=== PATIENT | male | born 1995 | race Hispanic/Latino ===

== ENCOUNTER 2018-10-16 15:51 | Emergency (ER) | payer SELFPAY ==
[2018-10-16] MEDS ORDERED: Ondansetron PF 4 MG/2 ML Vial ONE (15:53)
[2018-10-16 16:29] LABS: #Basophils 0.3 thou/uL (0.0-0.2); #Eosinphils 0.8 thou/uL (0.0-0.7); #Lymphocytes 5.9 thou/uL (1.20-3.40); #Monocytes 0.9 thou/uL (0.11-0.59); %Basophils 1.6 % (0.0-1.0); %Eosinophils 4.5 % (0.0-10.0); %Monocytes 5.3 % (0.0-4.0); %Neutrophils 53.6 % (31.0-61.0); Hemoglobin 17.2 g/dL (14.0-18.0); Mean Corpuscular HGB CONC 34.6 g/dL (32.0-36.0); Mean Corpuscular Hemoglobin 31.3 pg (25.0-35.0); Mean Corpuscular Volume 90.6 fL (78.0-98.0); Mean Platelet Volume 8.4 fL (7.4-10.4); Platelet Count 264 thou/uL (130-400); RBC Distribution Width 11.4 % (11.5-14.5); White Blood Cell (WBC) Count 16.8 thou/uL (4.8-10.8)
[2018-10-16] MEDS ORDERED: levETIRAcetam 500 MG/100 ML PREMIX BAG ONE (16:29)
--- NOTE | 2018-10-16 16:39 | RAD ---
RADIOGRAPH CHEST 1 VIEW: DATE: 10/16/2018 HISTORY: 19-year-old male found down. Acute chest trauma status post fall. FINDINGS: The visualized lung murphy are clear. The cardiomediastinal silhouette and hilar shadows are normal. The lateral costophrenic angles are sharp. The osseous structures appear normal. Supine positioning makes this study insensitive for the detection of pneumothorax. IMPRESSION: Negative.
[2018-10-16 16:51] LABS: ALT (SGPT) 26 U/L (8-55); AST (SGOT) 18 U/L (5-34); Albumin 4.6 g/dL (3.5-5.0); Alkaline Phosphatase 68 U/L (Less than 750); Anion Gap 21 mmol/L (10-20); BUN (Urea Nitrogen) 10 mg/dL (8.9-20.6); Bilirubin, Total 0.5 mg/dL (0.2-1.2); Calc. Creatinine Clearance 0 mL/min (70-130); Calcium 9.8 mg/dL (7.8-10.44); Carbon Dioxide 16 mmol/L (22-29); Chloride 105 mmol/L (98-107); Estimated GFR-MDRD Greater than 90; Globulin 2.4 g/dL (2.4-3.5); Glucose 164 mg/dL (70-105); Potassium 3.4 mmol/L (3.5-5.1); Sodium 139 mmol/L (136-145)
--- NOTE | 2018-10-16 17:13 | CT ---
CT head noncontrast HISTORY: Fall. Seizure. FINDINGS: There is no evidence of acute intracranial hemorrhage or infarct. The ventricles appear nor mal in size, shape and position. There is no mass effect or shift of midline structures. Visualized paranasal sinuses remain well aerated. IMPRESSION: No acute intracranial abnormalities are demonstrated.
--- NOTE | 2018-10-16 17:16 | CT ---
CT face noncontrast HISTORY: Fall. Facial injury. FINDINGS: The mandible, globes, and zygomatic arches are intact. Subtle irregularity involving the na peter bones may represent an old injury. No acute fracture is apparent. Mild mucosal thickening in the right maxillary sinus. No air-fluid levels. IMPRESSION: No acute traumatic injury is demonstrated.
--- NOTE | 2018-10-16 17:19 | CT ---
CT cervical spine noncontrast HISTORY: Seizure. Fall. Neck injury. FINDINGS: Vertebral body heights and alignment are maintained. Cervicothoracic junction is intact. No acute fracture or dislocation. IMPRESSION: No acute osseous abnormalities are demonstrated.
[2018-10-16 18:04] LABS: Base Excess-Venous -4.7 mmol/L (-2.0 to 3.0); Bicarbonate (HCO3v) 21.9 mmol/L (22.0-28.0); CO2 Tension (PvCO2) 44.9 mmHg (40.0-50.0); Calcium, Ionized 1.14 mmol/L (See Comments:); Chloride 107 mmol/L (98-107); Hemoglobin - Calc 14.5 g/dL (14.0-18.0); Potassium 3.6 mmol/L (3.5-5.1); Sodium 140 mmol/L (138-145); T. Carbon Dioxide 23.2 mmol/L (22.0-28.0); vO2 Saturation-calc 75.5 % (60.0-85.0)
[2018-10-16 18:48] LABS: Bilirubin Negative (Negative); Blood, Urine Negative (Negative); Clarity Clear (Clear); Glucose, Urine (Dipstick) Normal (Negative); Leukocyte Negative Leu/uL (Negative); Nitrite Negative (Negative); Protein, Urine (Dipstick) 20 mg/dL (Neg-Trace); Urobilinogen Normal mg/dL (Less than 2)
== END 2018-10-16 20:26 | disposition home or self-care (01) ==
LOC: ERS 15:51 → EDBD 15:51 → ERS 20:26
DX: R56.9 Unspecified convulsions (principal); S00.83XA Contusion of other part of head, initial encounter; F41.9 Anxiety disorder, unspecified; F17.210 Nicotine dependence, cigarettes, uncomplicated; W19.XXXA Unspecified fall, initial encounter
CPT/HCPCS: 70450; 70486; 71045; 72125; 80053; 81003; 82330; 82803; 84146; 85025; 93005; 96361; 96365; 96375; J1953; J2405

== ENCOUNTER 2018-11-05 03:01 | Emergency (ER) | payer SELFPAY ==
[2018-11-05] MEDS ORDERED: levETIRAcetam 500 MG TAB PO SCH (05:00)
[2018-11-05 06:34] LABS: ALT (SGPT) 23 U/L (8-55); AST (SGOT) 17 U/L (5-34); Albumin 4.8 g/dL (3.5-5.0); Alcohol Less than 10 mg/dL (Less than 10); Alkaline Phosphatase 61 U/L (40-150); Anion Gap 18 mmol/L (10-20); BUN (Urea Nitrogen) 11 mg/dL (8.9-20.6); Bilirubin, Total 0.7 mg/dL (0.2-1.2); Calc. Creatinine Clearance 0 mL/min (70-130); Calcium 9.6 mg/dL (7.8-10.44); Carbon Dioxide 20 mmol/L (22-29); Chloride 105 mmol/L (98-107); Estimated GFR-MDRD 80; Globulin 2.3 g/dL (2.4-3.5); Glucose 205 mg/dL (70-105); Potassium 4.5 mmol/L (3.5-5.1); Protein, Total 7.1 g/dL (6.0-8.3); Sodium 138 mmol/L (136-145)
[2018-11-05 06:51] LABS: Hemoglobin 16.4 g/dL (14.0-18.0); Mean Corpuscular HGB CONC 34.9 g/dL (32.0-36.0); Mean Corpuscular Hemoglobin 31.8 pg (27.0-31.0); Mean Corpuscular Volume 91.1 fL (78.0-98.0); Red Blood Cell (RBC) Count 5.17 mill/uL (4.70-6.10); White Blood Cell (WBC) Count 10.7 thou/uL (4.8-10.8)
[2018-11-05 06:52] LABS: #Eosinphils 0.4 thou/uL (0.0-0.7); #Lymphocytes 2.4 thou/uL (1.20-3.40); #Monocytes 0.5 thou/uL (0.11-0.59); #Neutrophils 7.4 thou/uL (1.40-6.50); %Basophils 0.4 % (0.0-1.0); %Eosinophils 3.8 % (0.0-10.0); %Monocytes 4.8 % (0.0-10.0); Mean Platelet Volume 7.9 fL (7.4-10.4); Platelet Count 202 thou/uL (130-400); RBC Distribution Width 11.2 % (11.5-14.5)
== END 2018-11-05 04:56 | disposition home or self-care (01) ==
LOC: ERS 03:01
DX: R56.9 Unspecified convulsions (principal); E11.65 Type 2 diabetes mellitus with hyperglycemia; Z71.6 Tobacco abuse counseling; F17.210 Nicotine dependence, cigarettes, uncomplicated
CPT/HCPCS: 80053; 80307; 85025; 99406

== ENCOUNTER 2018-12-20 19:26 | Emergency (ER) | payer SELFPAY ==
[2018-12-20] MEDS ORDERED: Proparacaine 0.5% Opth 15 ML BOT ONE (20:01)
[2018-12-20] MEDS ORDERED: Fluorescein Opthalmic Strip ONE (20:01)
[2018-12-20 20:14] LABS: Medtox Reader # READER 4; THC/Cannabinoid Screen Detected (NotDetected)
[2018-12-20 20:15] LABS: Amphetamine Not Detected (NotDetected); Barbiturates Screen Not Detected (NotDetected); Benzodiazepine Screen Not Detected (NotDetected); Cocaine Metabolite Screen Not Detected (NotDetected); Medtox Control Line Valid? VALID (VALID); Methadone Not Detected (NotDetected); Methamphetamine Not Detected (NotDetected); Opiate Screen Not Detected (NotDetected); Oxycodone Screen Not Detected (NotDetected); Phencyclidine (PCP) Not Detected (NotDetected); Tricyclic Screen Not Detected (NotDetected)
[2018-12-20 20:21] LABS: #Basophils 0.1 thou/uL (0.0-0.2); #Eosinphils 0.2 thou/uL (0.0-0.7); #Lymphocytes 1.8 thou/uL (1.20-3.40); #Monocytes 0.4 thou/uL (0.11-0.59); #Neutrophils 7.1 thou/uL (1.40-6.50); %Basophils 0.8 % (0.0-1.0); %Eosinophils 2.4 % (0.0-10.0); %Lymphocytes 18.9 % (21.0-51.0); %Monocytes 4.6 % (0.0-10.0); %Neutrophils 73.4 % (42.0-75.0); Hemoglobin 16.1 g/dL (14.0-18.0); Mean Corpuscular HGB CONC 34.4 g/dL (32.0-36.0); Mean Corpuscular Hemoglobin 31.2 pg (27.0-31.0); Mean Corpuscular Volume 90.5 fL (78.0-98.0); Mean Platelet Volume 7.6 fL (7.4-10.4); Platelet Count 197 thou/uL (130-400); RBC Distribution Width 11.1 % (11.5-14.5); Red Blood Cell (RBC) Count 5.15 mill/uL (4.70-6.10); White Blood Cell (WBC) Count 9.6 thou/uL (4.8-10.8)
[2018-12-20 20:36] LABS: Acetaminophen Less than 6.0 mcg/mL (10.0-30.0); Alcohol Less than 10 mg/dL (Less than 10); Salicylate Less than 8.0 mg/dL (15.0-30.0)
[2018-12-20 20:38] LABS: ALT (SGPT) 17 U/L (8-55); AST (SGOT) 15 U/L (5-34); Albumin 4.1 g/dL (3.5-5.0); Alkaline Phosphatase 60 U/L (40-110); Anion Gap 20 mmol/L (10-20); BUN (Urea Nitrogen) 9 mg/dL (8.9-20.6); Bilirubin, Total 0.5 mg/dL (0.2-1.2); CK (CPK) 39 U/L (30-200); Calc. Creatinine Clearance 0 mL/min (70-130); Calcium 8.5 mg/dL (7.8-10.44); Carbon Dioxide 14 mmol/L (22-29); Chloride 108 mmol/L (98-107); Estimated GFR-MDRD Greater than 90; Globulin 1.9 g/dL (2.4-3.5); Glucose 185 mg/dL (70-105); Sodium 138 mmol/L (136-145)
[2018-12-20] MEDS ORDERED: Ondansetron ODT 4 MG TAB ONE (21:19)
[2018-12-20] MEDS ORDERED: Acetaminophen 500 MG TAB ONE (21:19)
== END 2018-12-20 21:20 | disposition home or self-care (01) ==
LOC: ERS 19:26
DX: F12.90 Cannabis use, unspecified, uncomplicated (principal); R55 Syncope and collapse
CPT/HCPCS: 36415; 80053; 80306; 80307; 82550; 84146; 85025; 96360; Q0162

== ENCOUNTER 2019-02-10 16:48 | Observation (INO) | payer OTHER, SELFPAY ==
[2019-02-10] MEDS ORDERED: Ondansetron PF 4 MG/2 ML Vial ONE (16:56)
[2019-02-10] MEDS ORDERED: Lorazepam 2 MG/ML VIAL ONE (17:17)
[2019-02-10] MEDS ORDERED: levETIRAcetam In NaCl (Iso-Os) 1,500 MG in Premix Bag 1 BAG IVPB SCH (17:30)
[2019-02-10 17:32] LABS: #Basophils 0.1 thou/uL (0.0-0.2); #Eosinphils 0.4 thou/uL (0.0-0.7); #Lymphocytes 1.9 thou/uL (1.20-3.40); #Monocytes 0.6 thou/uL (0.11-0.59); #Neutrophils 10.3 thou/uL (1.40-6.50); %Basophils 0.6 % (0.0-1.0); %Eosinophils 3.2 % (0.0-10.0); %Lymphocytes 14.4 % (21.0-51.0); %Monocytes 4.4 % (0.0-10.0); %Neutrophils 77.5 % (42.0-75.0); Hemoglobin 15.6 g/dL (14.0-18.0); Mean Corpuscular HGB CONC 34.9 g/dL (32.0-36.0); Mean Corpuscular Volume 91.8 fL (78.0-98.0); Mean Platelet Volume 7.6 fL (7.4-10.4); Platelet Count 239 thou/uL (130-400); Red Blood Cell (RBC) Count 4.88 mill/uL (4.70-6.10); White Blood Cell (WBC) Count 13.3 thou/uL (4.8-10.8)
[2019-02-10 17:52] LABS: ALT (SGPT) 11 U/L (8-55); AST (SGOT) 14 U/L (5-34); Albumin 5.2 g/dL (3.5-5.0); Alkaline Phosphatase 78 U/L (40-110); Anion Gap 24 mmol/L (10-20); BUN (Urea Nitrogen) 14 mg/dL (8.9-20.6); Bilirubin, Total 0.6 mg/dL (0.2-1.2); CK (CPK) 74 U/L (30-200); Calc. Creatinine Clearance 0 mL/min (70-130); Calcium 9.9 mg/dL (7.8-10.44); Carbon Dioxide 16 mmol/L (22-29); Chloride 104 mmol/L (98-107); Estimated GFR-MDRD 85; Globulin 2.6 g/dL (2.4-3.5); Glucose 200 mg/dL (70-105); Lipase 13 U/L (8-78); Magnesium 2.8 mg/dL (1.6-2.6); Potassium 5.4 mmol/L (3.5-5.1); Protein, Total 7.8 g/dL (6.0-8.3); Sodium 139 mmol/L (136-145)
--- NOTE | 2019-02-10 17:52 | CT ---
Head CT without contrast 02/10/2019: COMPARISON: 10/16/2018 HISTORY: Seizures TECHNIQUE: Axial CT imaging at 5 mm intervals from vertex through skull base without contrast FINDINGS: The imaged paranasal sinuses and mastoid air cells are well aerated. There is no displaced calvarial fracture. No intracranial hemorrhage, midline shift, mass effect, or ventricular enlargement. IMPRESSION: Stable head CT-no intracranial hemorrhage.
--- NOTE | 2019-02-10 17:57 | CT ---
CT cervical spine: 02/10/2019 COMPARISON: 10/16/2018 HISTORY: Seizure TECHNIQUE: Axial CT imaging obtained at 2.5 mm intervals through the cervical spine with coronal and sagittal reformatted imaging FINDINGS: The imaged paranasal sinuses/mastoid air cells are well aerated. The C1 ring is intact. The occipital condyles, the dens, the C1-2 articulation, the craniocervical junction, and the cervicothoracic junction appear intact. Cervical vertebral body height and alignment appears normal. No prevertebral soft tissue swelling. No displaced fracture or evidence of dislocation. There is hazy increased density within the lung apices, which may be on the basis of motion artifact or infiltrate. Follow-up chest radiograph suggested. IMPRESSION: Hazy increased density in the lung apices. No acute fracture or dislocation within the ce rvical spine.
[2019-02-10 18:30] LABS: Bacteria/HPF None Seen HPF (None Seen); Bilirubin Negative (Negative); Blood, Urine Trace (Negative); Calcium Oxalate Crystals Rare HPF (None Seen); Clarity Clear (Clear); Glucose, Urine (Dipstick) Normal (Negative); Leukocyte Negative Leu/uL (Negative); Mucous/LPF Rare LPF (<2+); Nitrite Negative (Negative); Protein, Urine (Dipstick) 100 mg/dL (Neg-Trace); RBC/HPF 0-3 HPF (0-3); Squamous Epithelial None Seen HPF (0-3); Urobilinogen Normal mg/dL (Less than 2); WBC/HPF 0-3 HPF (0-3)
[2019-02-10 18:40] LABS: Amphetamine Not Detected (NotDetected); Barbiturates Screen Not Detected (NotDetected); Benzodiazepine Screen Not Detected (NotDetected); Cocaine Metabolite Screen Not Detected (NotDetected); Medtox Control Line Valid? VALID (VALID); Medtox Reader # READER 1; Methadone Not Detected (NotDetected); Methamphetamine Not Detected (NotDetected); Opiate Screen Not Detected (NotDetected); Oxycodone Screen Not Detected (NotDetected); Phencyclidine (PCP) Not Detected (NotDetected); THC/Cannabinoid Screen Detected (NotDetected); Tricyclic Screen Not Detected (NotDetected)
[2019-02-10 19:00] LABS: Lactate 3.31 mmol/L (0.50-2.20)
--- NOTE | 2019-02-10 19:09 | PDOC.FPRHP ---
- History of Present Illness Chief Complaint: seizure History of Present Illness: Mr. Pizano is a 23yo male with a known history of seizure disorder who presents to the ED from [facility] for seizure x2. He fell and hit his head after the first seizure and while still post-ictal had a second brief seizure. At the time of evaluation he was still confused about some aspects of his history and his present condition. He states he has a known seizure disorder , but does not recall the name of his physician or when he stopped taking the Keppra. He does recall that he was taking Keppra 1gram before, but has not been taking it for a while. He states that he is uninsured and this contributed to him discontinuing medication. He states his last seizure was approximately 3 weeks ago, however per the baby doctor in the room that number has changed several times since his arrival to the ED. He denies any bowel of bladder incontinence during tonight's episodes. He does complain of a stomach ache and 1 episode of emesis on arrival to the ED. ED Course: 1L NS, 1500mg Keppra IV, 2mg Ativan, 8mg Zofran - Allergies/Adverse Reactions Allergies Allergy/AdvReac Type Severity Reaction Status Date / Time No Known Drug Allergies Allergy Verified 02/10/19 21:28 - Home Medications Medication Instructions Recorded Confirmed Type levETIRAcetam [Keppra] 1,000 mg PO ASDIR 02/10/19 02/10/19 History - History PMHx: Seizure disorder PSHx: None FHx: Denies medical problems / does not recall Social: Admits to frequent marijuana use. Denies tobacco or alcohol use. - Review of Systems General: reports: fever/chills ENT: denies: nasal congestion, rhinorrhea Respiratory: denies: cough, congestion, shortness of breath Cardiovascular: denies: chest pain, palpitation, edema Gastrointestinal: reports: nausea, vomiting, abdominal pain. denies: diarrhea, constipation Genitourinary: denies: dysuria, polyuria, discharge Skin: denies: rashes, lesions, jaundice Musculoskeletal: denies: pain, tenderness, stiffness Neurological: reports: seizure. denies: numbness, weakness Psychological: denies: anxiety, depression - Vital signs BP: 108/72 HR: 56 RR: 14 Tmax: 98.3F Pox: 99% on RA Wt: 90kg - Physical Exam Constitutional: NAD, well developed -Constitutional: Awake, semi-alert, oriented to person, and time. However he is not aware of much of his history. HEENT: normocephalic and atraumatic, PERRLA, EOMI, conjunctiva clear, grossly normal vision, grossly normal hearing, MMM -HEENT: no lacerations Neck: supple, FROM Heart: RRR, normal S1/S2, no murmurs/rubs/gallops Lungs: CTAB, no respiratory distress, good air movement Abdomen: soft, non-tender, bowel sounds present Musculoskeletal: normal structure, normal tone Neurological: no focal deficit, CN II-XII intact, normal sensation Skin: no rash/lesions, good turgor Heme/Lymphatic: no unusual bruising or bleeding, no purpura, no petechia -Psychiatric: Recent memory not intact, confused and drowsy. FMR H&P: Results - Labs Result Diagrams: 02/11/19 04:26 02/11/19 04:26 Lab results: WBC 13.3 thou/uL (4.8-10.8) H 02/10/19 17:22 Hgb 15.6 g/dL (14.0-18.0) 02/10/19 17:22 Hct 44.8 % (42.0-52.0) 02/10/19 17:22 MCV 91.8 fL (78.0-98.0) 02/10/19 17:22 Plt Count 239 thou/uL (130-400) 02/10/19 17:22 Neutrophils % 77.5 % (42.0-75.0) H 02/10/19 17:22 Sodium 139 mmol/L (136-145) 02/10/19 17:22 Potassium 5.4 mmol/L (3.5-5.1) H 02/10/19 17:22 Chloride 104 mmol/L (98-107) 02/10/19 17:22 Carbon Dioxide 16 mmol/L (22-29) L 02/10/19 17:22 BUN 14 mg/dL (8.9-20.6) 02/10/19 17:22 Creatinine 1.07 mg/dL (0.7-1.3) 02/10/19 17:22 Glucose 200 mg/dL (70-105) H 02/10/19 17:22 Calcium 9.9 mg/dL (7.8-10.44) 02/10/19 17:22 Total Bilirubin 0.6 mg/dL (0.2-1.2) 02/10/19 17:22 AST 14 U/L (5-34) 02/10/19 17:22 ALT 11 U/L (8-55) 02/10/19 17:22 Alkaline Phosphatase 78 U/L (40-110) 02/10/19 17:22 Ammonia 108 umol/L (18-72) H 02/10/19 17:22 Creatine Kinase 74 U/L (30-200) 02/10/19 17:22 Serum Total Protein 7.8 g/dL (6.0-8.3) 02/10/19 17:22 Albumin 5.2 g/dL (3.5-5.0) H 02/10/19 17:22 Lipase 13 U/L (8-78) 02/10/19 17:22 Urine Ketones 10 mg/dL (Negative) A 02/10/19 18:11 Urine Blood Trace (Negative) A 02/10/19 18:11 Urine Nitrite Negative (Negative) 02/10/19 18:11 Ur Leukocyte Esterase Negative Tk/uL (Negative) 02/10/19 18:11 Urine RBC 0-3 HPF (0-3) 02/10/19 18:11 Urine WBC 0-3 HPF (0-3) 02/10/19 18:11 Ur Squamous Epith Cells None Seen HPF (0-3) 02/10/19 18:11 Urine Bacteria None Seen HPF (None Seen) 02/10/19 18:11 - EKG Interpretation EKG: NSR - Radiology Interpretation CT scan - head Status: report reviewed by me (IMPRESSION: Stable head CT-no intracranial hemorrhage. IMPRESSION: Hazy increased density in the lung apices. No acute fracture or dislocation within the cervical spine.) FMR H&P: A/P - Problem List (1) Seizure disorder Current Visit: Yes Status: Acute Code(s): G40.909 - EPILEPSY, UNSP, NOT INTRACTABLE, WITHOUT STATUS EPILEPTICUS (2) Increased anion gap metabolic acidosis Current Visit: Yes Status: Acute Code(s): E87.2 - ACIDOSIS (3) Lactic acid acidosis Current Visit: Yes Status: Acute Code(s): E87.2 - ACIDOSIS (4) Post concussive syndrome Current Visit: Yes Status: Suspected Code(s): F07.81 - POSTCONCUSSIONAL SYNDROME - Plan Seizure disorder -Was previously taking Keppra, unsure of when last dose was. Poor follow up outpatient. -S/p 2 witnessed seizures in alf. Generalized tonic-clonic. -Restarted on Keppra, 1500mg loading dose. Will start 500BID tomorrow and titrate accordingly. -Neuro consulted -Seizure protocol in place, ativan prn -Hepatitis panel, RPR, and HIV ordered. S/p fall from standing, possible concussion -Hit head hard per EMS/alf -CT C-spine and Head negative. -Confused, 1x emesis - may have post-concussive symptoms. -Will monitor closely Anion gap metabolic acidosis, suspect 2/2 lactic acidosis -Gap of 19 -Elevated lactic acid, decreased with IV fluids. -repeat BMP in the am. -VBG ordered Elevated blood glucose, without diagnosis of diabetes -A1c pending -SSI and hypoglycemia protocol, accuchecks ACHS Elevated ammonia -etiology unclear. -patient reports marijuana use, history of K2 use. -will repeat in AM labs. Disposition/LOS: Dispo: Stable, observation. Likely LOS < 48 hours. Code: Full VTE: SCDs FMR H&P: Upper Level - Pertinent history 23 year old male with PMH seizure disorder presents after having witnessed tonic -clonic seizure while in alf. Patient previously on Keppra but has been off of medication for approximately 6 months due to insurance reasons. Patient states that he does not follow with neurologist in [facility]. Patient recently arrested for possession of marijuana. He has history of marijuana use. Patient not very forthcoming in answering questions. He would say a few words before going back to sleep. He reports being tired. Per officers, patient hit head when he had seizure. Patient denies headache. No associated loss of bowel or bladder function. Patient reports no significant PMH other than seizure disorder. Patient reports that last seizure was 3 weeks ago. He had ER visit for seizure in October. - Pertinent findings General: Alert and oriented. Appeared tired. Would fall back to sleep after answering questions. HEENT: Normocephalic and atraumatic. No obvious lacerations or hematoma. MMM. Card: Regular rhythm, bradycardic during my exam. No appreciable murmur. Resp: CTA bilaterally Ext: No edema or cyanosis Abdomen: Soft, non-tender - Plan Date/Time: 02/10/191908 I, Flora Hawknis, have evaluated this patient and agree with findings/plan as outlined by process engineering intern resident. Pertinent changes/additions are listed here. Seizure Disorder - Has been off of medication for last 6 months - Loaded with keppra, will start 500 mg Keppra BID - Neurology consulted; patient could potentially follow up with outpatient - May be related to drug use, specifically marijuana/K2 use - UDS positive for THC, but otherwise negative - TSH WNL - Seizure precautions - Ativan PRN for seizures - Patient will need Keppra level check in a few days to see if therapeutic Anion gap metabolic acidosis - Bicarb 16 w/ anion gap 19 - VBG pending - Lactic acid 3, may be cause - Will fluid resuscitate and reassess - Ammonia elevated, unknown reason why. Liver enzymes normal. No evidence of hepatic encephalopathy. Drug screen negative. Has not been on valproic acid for seizure disorder. Will repeat in AM. Elevated ammonia - Uncertain etiology - No evidence of hepatic encephalopathy - UDS positive only for marijuana, hx of K2 use, which may be contributing factor - Will repeat in AM Leukocytosis - Mild, will trend - Likely leukemoid reaction Possible post-concussive syndrome - Patient with ongoing confusion, uncertain if post-ictal, drug related, or related to fall Hyperkalemia - Mild at 5.4 - Will trend Hyperglycemia - No hx of DM per patient - Will order HgA1c - Mild SSI - May be stress reaction from seizure - ACHS accuchecks Lactic acidosis - Will fluid resuscitate and trend Hx marijuana use and recent arrest - Will check HIV, RPR, Hepatitis panel DVT PPX: SCD's Code Status: Full Dispo: Obs on stroke unit. Continue antiseizure medication. Possible neuro consult in AM. Addendum - Attending - Attending Attestation Date/Time: 02/11/19 [id number] I personally evaluated the patient and discussed the management with the team. I agree with the History, Examination, Assessment and Plan documented above with any addition or exceptions noted below. Recurrent seizure due to presumed nonadherance to medications. Polysusbstance abuse - K2 and marijuana. Elevated ammonia without current confusion or asterixis - repeat in AM, not on depakote.
[2019-02-10] MEDS ORDERED: Lorazepam 2 MG/ML VIAL SLOW IVP PRN (20:05)
[2019-02-10] MEDS ORDERED: Ondansetron ODT 4 MG TAB PO PRN (20:09)
[2019-02-10] MEDS ORDERED: Acetaminophen 325 MG TAB PO PRN (20:09)
[2019-02-10] MEDS ORDERED: Dextrose 50% Abboject 50 ML SYRINGE SLOW IVP PRN (21:01)
[2019-02-10] MEDS ORDERED: HumaLOG 300 UNITS/3 ML VIAL SC PRN ×2 (21:01)
[2019-02-10] MEDS ORDERED: Dextrose 5% in Water 1,000 ML IV PRN (21:01)
[2019-02-10 21:28] LABS: Actual Bicarbonate (HCO3v) 24 mEq/L (22-28); Base Excess -0.8 mEq/L (-2.0 to +3.0); Calcium, Ionized 1.09 mmol/L (1.16-1.32); Chloride (ABG LAB) 109 mmol/L (98-106); Hemoglobin (Hb) 14.1 g/dL (13.2-17.3); Potassium - ABG Lab 3.61 mmol/L (3.70-5.30); Sodium 141.8 mmol/L (133-146)
[2019-02-10 21:30] LABS: Hemoglobin A1c 4.8 % (4.0-6.0)
[2019-02-10 21:39] LABS: Lactic Acid 1.1 mmol/L (0.5-2.2)
[2019-02-10 21:42] VITALS: BMI 33.7
[2019-02-10 21:43] LABS: Acetaminophen Less than 6.0 mcg/mL (10.0-30.0); Alcohol Less than 10 mg/dL (Less than 10); Salicylate Less than 8.0 mg/dL (15.0-30.0)
[2019-02-10 22:40] LABS: Syphilis Antibody Nonreactive (Nonreactive); Syphilis Antibody Index 0.06 S/CO (<1.00 Non-Reactive)
[2019-02-10 23:05] LABS: HBCM Index 0.07 S/CO (0-0.79); HBSAB Concentration 2.01 mIU/mL; HBSAg Index 0.23 S/CO (0-0.99); HIV (1/2) Antibody/Antigen Non-Reactive (NonReactive); HIV 1/2 INDEX 0.07 S/CO (<1.00); Hep B Surf AB Non-Reactive (NonReactive); Hep B Surf Ag Non-Reactive S/CO (NonReactive); Hep C IgG Ab Non-Reactive (NonReactive); Hep C Index 0.09 S/CO (0-0.79); Hepatitis B Core IgM Abs Non-Reactive (NonReactive)
[2019-02-11 04:46] LABS: #Eosinphils 0.5 thou/uL (0.0-0.7); #Lymphocytes 2.1 thou/uL (1.20-3.40); #Monocytes 0.7 thou/uL (0.11-0.59); #Neutrophils 4.7 thou/uL (1.40-6.50); %Basophils 0.5 % (0.0-1.0); %Eosinophils 5.8 % (0.0-10.0); %Lymphocytes 26.4 % (21.0-51.0); %Monocytes 8.3 % (0.0-10.0); Hemoglobin 13.4 g/dL (14.0-18.0); Mean Corpuscular HGB CONC 34.9 g/dL (32.0-36.0); Mean Corpuscular Hemoglobin 32.1 pg (27.0-31.0); Mean Platelet Volume 7.5 fL (7.4-10.4); Platelet Count 183 thou/uL (130-400); RBC Distribution Width 10.9 % (11.5-14.5); Red Blood Cell (RBC) Count 4.18 mill/uL (4.70-6.10)
[2019-02-11 05:14] LABS: ALT (SGPT) 8 U/L (8-55); AST (SGOT) 13 U/L (5-34); Albumin 4.2 g/dL (3.5-5.0); Alkaline Phosphatase 63 U/L (40-110); Anion Gap 10 mmol/L (10-20); BUN (Urea Nitrogen) 12 mg/dL (8.9-20.6); Bilirubin, Total 1.2 mg/dL (0.2-1.2); Calc. Creatinine Clearance 173 mL/min (70-130); Calcium 8.6 mg/dL (7.8-10.44); Carbon Dioxide 26 mmol/L (22-29); Chloride 108 mmol/L (98-107); Estimated GFR-MDRD Greater than 90; Globulin 1.7 g/dL (2.4-3.5); Glucose 102 mg/dL (70-105); Potassium 3.8 mmol/L (3.5-5.1); Protein, Total 5.9 g/dL (6.0-8.3); Sodium 140 mmol/L (136-145)
--- NOTE | 2019-02-11 06:12 | PDOC.FM ---
- Subjective Subjective: Pt states he feels tired. Denies any seizure like activity overnight. Denies CP, SOB, STERLING. States he started having seizures when he was teenager after doing too much cocaine. - Objective MAR Reviewed: Yes Vital Signs & Weight: Vital Signs (12 hours) Temp Pulse Resp BP Pulse Ox 02/11/19 04:00 98.2 F 51 L 18 110/54 L 95 02/10/19 23:35 98.6 F 60 18 101/56 L 95 02/10/19 19:46 99.5 F 62 16 109/63 94 L Weight Weight 89.312 kg Result Diagrams: 02/11/19 04:26 02/11/19 04:26 Phys Exam - Physical Examination Constitutional: NAD HEENT: moist MMs, sclera anicteric Neck: no nodes, full ROM Respiratory: no wheezing, no rales, no rhonchi, clear to auscultation bilateral Cardiovascular: RRR, no significant murmur, no rub Gastrointestinal: soft, non-tender, no distention, positive bowel sounds Musculoskeletal: no edema, pulses present Neurological: non-focal, moves all 4 limbs Psychiatric: normal affect, A&O x 3 Skin: no rash, normal turgor, cap refill <2 seconds Dx/Plan (1) Increased anion gap metabolic acidosis Code(s): E87.2 - ACIDOSIS Status: Acute (2) Lactic acid acidosis Code(s): E87.2 - ACIDOSIS Status: Acute (3) Seizure disorder Code(s): G40.909 - EPILEPSY, UNSP, NOT INTRACTABLE, WITHOUT STATUS EPILEPTICUS Status: Acute (4) Post concussive syndrome Code(s): F07.81 - POSTCONCUSSIONAL SYNDROME Status: Suspected - Plan Plan: 1. Seizure Disorder - Has been off of medication for last 6 months - Loaded with keppra, will start 500 mg Keppra BID - Neurology consulted; patient could potentially follow up with outpatient - May be related to drug use, specifically marijuana/K2 use - UDS positive for THC, but otherwise negative - TSH WNL - Seizure precautions - Ativan PRN for seizures - Patient will need Keppra level check in a few days to see if therapeutic 2. Anion gap metabolic acidosis - Bicarb 16 w/ anion gap 19 - VBG pending - Lactic acid 3, may be cause - Will fluid resuscitate and reassess - Ammonia elevated, unknown reason why. Liver enzymes normal. No evidence of hepatic encephalopathy. Drug screen negative. Has not been on valproic acid for seizure disorder. Will repeat in AM. 3. Elevated ammonia, improved - Uncertain etiology - No evidence of hepatic encephalopathy - UDS positive only for marijuana, hx of K2 use, which may be contributing factor - Repeat 40 on 02/11 4. Leukocytosis, improved - Mild, improved 02/11 - Likely leukemoid reaction 5. Possible post-concussive syndrome - Patient with ongoing confusion, uncertain if post-ictal, drug related, or related to fall 6. Hyperkalemia - Mild at 5.4 - Will trend 7. Hyperglycemia, improved - No hx of DM per patient - HgA1c 4.8 - Mild SSI - May be stress reaction from seizure - ACHS accuchecks 8. Lactic acidosis - Will fluid resuscitate and trend 9. Hx marijuana use and recent arrest - HIV and RPR neg. - Hep panel neg, not immune to hep B. DVT PPX: SCD's Code Status: Full Dispo: Obs on stroke unit. Continue anti-seizure medication.
[2019-02-11] MEDS ORDERED: levETIRAcetam 500 MG TAB PO SCH (09:00)
[2019-02-11 12:03] VITALS: BP 116/56; TEMP 98.5
--- NOTE | 2019-02-11 13:50 | DIS ---
DATE OF ADMISSION: 02/10/2019 DATE OF DISCHARGE: 02/11/2019 RESIDENT: Maricarmen Pedro DO. ADMIT ATTENDING: He Keys MD. DISCHARGE ATTENDING: Benjamin Kumari MD. CONSULTS: None. PROCEDURES: Brain CT and cervical spine CT, both were negative for any acute process. CT of the cervical spine showed apical haziness in bilateral lungs. DIAGNOSES: 1. Seizure disorder. 2. Anion gap metabolic acidosis. 3. Elevated ammonia. 4. Leukocytosis. 5. Possible post concussion syndrome. 6. Hyperkalemia. 7. Hyperglycemia. 8. Lactic acidosis. 9. History of marijuana use and recent arrest. DISCHARGE MEDICATIONS: Keppra 500 mg p.o. b.i.d. HISTORY OF PRESENT ILLNESS/HOSPITAL COURSE: The patient is a 23-year-old male with a known history of seizure disorder, chronic use of cocaine as a teenager. The patient was arrested yesterday for having drug paraphernalia and when he was at the residential, fell and had a seizure and hit his head. The patient was brought into the emergency department. Head CT and cervical spine CT showed no acute process, no fracture, and some apical haziness in bilateral lungs which was asymptomatic. The patient was postictal as well as possible postconcussion syndrome from hitting his head. The patient has not been on his Keppra as he has run out and does not have it, so I want to refill his medications here. The patient was restarted on 500 mg p.o. b.i.d. of Keppra. On 02/11/2019, patient was doing much better, had no overnight seizure-like activity and feeling ready to go. DISPOSITION: Stable. DISCHARGE INSTRUCTIONS: 1. Location: Back to residential. 2. Diet: Regular diet. 3. Activity: As tolerated. 4. Followup: With Dr. Dunn in 2 weeks' time. Continue Keppra b.i.d. 500 mg in the meantime. Job ID: [id number]
--- NOTE | 2019-02-12 10:24 | PRG ---
DATE OF SERVICE: 02/11/2019 Please add this as an addendum to the note of Dr. Maricarmen Pedro. I have read Dr. Pedro's daily note and agree with her assessment and plan. Mr. Pizano is a pleasant 23-year-old [place] male with a known seizure disorder. He has been not taking his seizure meds for at least several weeks and [facility] He fell during the seizure, hitting his head and was brought to our ER. He was very nauseated. Head CT did not reveal any intracranial injury. Neck CT was likewise negative for any neck injury. He was observed overnight and reloaded with [facility]. He remained seizure-free. By the next morning, he looked and felt much better and was subsequently discharged. His CBC was normal with a white count of 8000, hemoglobin 13.4, hematocrit was 38.4. Chemistries: Sodium was 140, potassium 3.8, chloride was 108, bicarb was 26, BUN 12, and creatinine 0.83. On admission, he had a slight elevation of his lactic acid, which improved with fluids. By the next morning, as stated, he was completely awake and alert, in no distress, and was discharged to the [facility]. Job ID: [id number]
== END 2019-02-11 13:18 ==
LOC: ERS 16:48 → 2SE 20:05
PROVIDERS: ADMIT Emergency Medicine; ATTEND Emergency Medicine
DX: G40.409 Other generalized epilepsy and epileptic syndromes, not intractable, without status epilepticus (principal); E87.2 Acidosis; E72.20 Disorder of urea cycle metabolism, unspecified; D72.829 Elevated white blood cell count, unspecified; E87.5 Hyperkalemia; R73.9 Hyperglycemia, unspecified; F12.10 Cannabis abuse, uncomplicated; Z79.899 Other long term (current) drug therapy; W18.30XA Fall on same level, unspecified, initial encounter
CPT/HCPCS: 36415; 36416; 70450; 72125; 80053; 80306; 80307; 81003; 81015; 82140; 82550; 82805; 83036; 83605; 83690; 83735; 83930; 84443; 85025; 86705; 86706; 86708; 86780; 86803; 87340; 87389; 93005; 94760; 96361; 96365; 96375; G0378; J1953; J2060; J2405